=== PATIENT | male | born 1960 | race Caucasian/White ===

== ENCOUNTER 2019-06-10 15:45 | Inpatient (IN) | payer MEDICARE ==
[~2019-06-10] VITALS: Ht 170.2 cm; Wt 94.7 kg
[2019-06-10 15:48] VITALS: BP 161/86
[2019-06-10 16:35] LABS: ABSOLUTE BASOPHILS 0.1 thou/uL (0.0-0.2); ABSOLUTE EOSINOPHILS 0.3 thou/uL (0.0-0.7); ABSOLUTE LYMPHOCYTES 2.7 thou/uL (0.8-5.3); ABSOLUTE MONOCYTES 0.7 thou/uL (0.0-1.2); ABSOLUTE NEUTROPHILS 5.1 thou/uL (1.6-8.1); BASOPHILS 1.6 %; EOSINOPHILS 2.9 %; HEMATOCRIT 43.3 % (42.0-52.0); HEMOGLOBIN 15.1 gm/dL (14.0-18.0); LYMPHOCYTES 30.2 %; MCH 32.1 pg (26.0-34.0); MCHC 34.9 g/dL (28.0-37.0); MCV 91.9 fL (80.0-100.0); NUCLEATED RBCS 0 /100WBC; PLATELET COUNT* 294 thou/uL (150-400); POLYS 57.3 %; RBC 4.71 mil/uL (4.50-6.00); RDW-CV 13.5 % (10.5-14.5); WBC 8.8 thou/uL (4.0-11.0)
[2019-06-10 16:47] LABS: APTT 28.7 Seconds (25.0-31.3); CALCIUM 8.8 mg/dL (8.5-10.1); CREATININE 0.9 mg/dL (0.6-1.3); POTASSIUM 3.6 mmol/L (3.5-5.1); PROTIME 10.6 Seconds (9.20-11.50)
[2019-06-10 16:51] LABS: ALBUMIN 3.9 g/dL (3.4-5.0); TOTAL BILIRUBIN 0.4 mg/dL (<0.1-1.0); TOTAL PROTEIN 7.2 g/dL (6.4-8.2)
--- NOTE | 2019-06-10 16:59 | EKG ---
[place] [address] ELECTROCARDIOGRAM REPORT Name: ARUTR CHATTERJEE Room: [facility]#: [id number] Admission: 06/10/19 Attend Phys: Discharge: Date of : 58 Date of Service: 06/10/19 1550 Report #: [id number] THIS REPORT FOR: //name// [facility] ED Test Date: 2019-06-10 Test Time: 15:50:37 Pat Name: ARTUR CHATTERJEE Department: Room: Gender: Leadership Program Intern: AR : 1960 Requested By: Judy Kearney Order Number: [id number] MD: Emmanuel Morales Measurements Intervals [place] Rate: 83 P: 16 WV: 181 QRS: -17 QRSD: 87 T: 51 QT: 380 QTc: 447 Interpretive Statements Sinus rhythm Borderline left axis deviation Baseline wander in lead(s) V3 No previous ECG available for comparison Electronically Signed On 06-10-2019 16:57:39 CDT by Emmanuel Morales [email or web address] <ELECTRONICALLY SIGNED> By: Emmanuel Morales MD, [facility] 06/10/19 1657 1550 1550 Emmanuel Morales MD, FACC /EPI
[2019-06-10 17:15] LABS: URINE BILIRUBIN NEGATIVE (Negative); URINE BLOOD NEGATIVE (Negative); URINE CLARITY CLEAR; URINE COLOR YELLOW; URINE GLUCOSE-RANDOM NEGATIVE (Negative); URINE KETONES NEGATIVE (Negative); URINE LEUKOCYTES-REFLEX NEGATIVE (Negative); URINE NITRITE-REFLEX NEGATIVE (Negative); URINE PROTEIN 1+ (Negative); URINE SPECIFIC GRAVITY >= 1.030 (1.005-1.030); URINE UROBILINOGEN 0.2 E.U./dl (0.2-1.0)
[2019-06-10 17:25] LABS: AMP/METHAMP Negative (Negative); BARBITURATES Negative (Negative); BENZODIAZEPINES Negative (Negative); COCAINE Negative (Negative); METHADONE Negative (Negative); OPIATES Negative (Negative); PCP Negative (Negative); THC Negative (Negative)
[2019-06-10 20:38] VITALS: BP 158/78
[2019-06-10 21:00] VITALS: BP 135/99
[2019-06-11 00:03] VITALS: BP 145/82; BP 171/70
[2019-06-11 04:00] VITALS: BP 160/76
--- NOTE | 2019-06-11 04:34 | NUR ---
RECEIVED REPORT FROM ED RN. PT TRANSFERRED TO RM 204. PT A&OX4. VSS. PHYSICAL ASSESSMENT COMPLETED AND CHARTED. PT ON RA. PT TRACING SR ON TELE. PT UPSTANDBY TO RESTROOM. PT COMPLAINED OF RIGHT ANKLE BUT REFUSED MEDS. NIH CHARTED. MAINTAINED ON NPO FOR ST EVAL. DID NOT PASS BEDSIDE SWALLOW. CALL LIGHT WITHIN REACH.
[2019-06-11 04:43] LABS: ALBUMIN 3.6 g/dL (3.4-5.0); CALCIUM 8.6 mg/dL (8.5-10.1); CREATININE 0.8 mg/dL (0.6-1.3); POTASSIUM 3.7 mmol/L (3.5-5.1); TOTAL BILIRUBIN 0.5 mg/dL (<0.1-1.0); TOTAL PROTEIN 6.5 g/dL (6.4-8.2)
[2019-06-11 04:45] LABS: CHOLESTEROL 190 mg/dL (<200); HDL CHOLESTEROL 21 mg/dL (>40); LDL CHOLESTEROL 137 mg/dL (<100); TRIGLYCERIDE 160 mg/dL (<150); VLDL 32 mg/dL (<40)
[2019-06-11 04:47] LABS: SERUM ASSESSMENT Clear
[2019-06-11 07:30] VITALS: BP 171/89
--- NOTE | 2019-06-11 10:05 | CON ---
[address] [address] CONSULTATION Name: ARTUR CHATTERJEE Room: [address] IN [facility]#: [id number] Admission: 06/10/19 Attend Phys: Dinesh Washington Discharge: Date of : 58 Report #: [id number] THIS REPORT FOR: //name// cc: MARTITA - No family physician/PCP MARTITA - No family physician/PCP ~ THIS REPORT FOR: //name// CC: MARTITA physician/PCP Rocky Barros DATE OF SERVICE: 06/11/2019 HISTORY OF PRESENT ILLNESS: This is a 58-year-old male patient who was evaluated by pretty unusual history. I had talked to the nurses looking after this patient last night and I talked to the nurse practitioner who admitted the patient from Emergency Room. As documented in their notes, this patient is a very poor historian. He came to Emergency Room because he was having some symptoms suggestive of cough and cold for 5 months. They noticed some speech difficulty. It is not even sure what the duration is. The patient never noticed it. When he noticed it, he noticed it at 1:30, which was way outside the window to do any TPA or intervention. Some of the records and history indicated that it may have been as well as 4 days or even longer than that. This patient does have a history of hypertension, but is pretty noncompliant and does not take any medications for that on a proper basis. He continued to smoke. REVIEW OF SYSTEMS: A 14-point review of system was attempted, both from the patient as well as from the record, it looks like he has a history of hypercholesterolemia, hypertension and noncompliance. That is all the history I can get. PAST MEDICAL HISTORY: Negative for stroke, but he had a head injury and he had a plate in his head according to him. FAMILY HISTORY: Noncontributory. SOCIAL HISTORY: He smokes. PHYSICAL EXAMINATION: Indicates that on my examination, he is alert, responsive. He is oriented. He can tell me what hospital he is in, and he knows who the president is. His cranial nerve examination was attempted and looks mostly unremarkable. He moves all four extremities and his position sense is intact on both sides. I could not look at the fundus. There is no carotid bruit in this patient. Cardiac examinations appear unremarkable. There is no respiratory difficulty, but he has rhonchi. His last blood pressure was 160/76, pulse is 76, temperature [place] 97.8. [place] [address] CONSULTATION Name: ARTUR CHATTERJEE Room: [address]#: [id number] Admission: 06/10/19 Attend Phys: Dinesh Washington Discharge: Date of : 58 Report #: [id number] LABORATORY DATA: White count is 8.8. His triglyceride is 160, his cholesterol is 190, but his LDL is 137. His HDL is only 21. His CTA does show moderate amount of stenosis. IMPRESSION: Very poorly defined history in this patient. It is possible this patient had a transient ischemic attack. He does have a moderate amount of stenosis and we will get him evaluated by Vascular Surgery. He appeared to be his baseline. His chest x-ray shows a nodule and he is a smoker. I will suggest working up further for that. As far as his blood pressure is concerned, it is not very high and it is probably like this. Presently we can leave it like this, but over a period of time that needs to be corrected. I did put him on aspirin, but I did not put him on Plavix. If Vascular Surgery considers any intervention, then I will put him on Plavix for the time being, but subsequently consider that if they do not plan to do any intervention on him. Main thing is he needs to take care of his vascular risk factors and needs to be compliant and we talked about it and I discussed with him the consequences of being noncompliant. He understands that. More than 50 minutes of time was spent taking care of this patient and majority of that time was spent counseling and co ordianting Thank you very much for this referral. <ELECTRONICALLY SIGNED> By: Lonnie Mccauley MD 06/11/19 1005 0837 [id number] Mccauley MD /nt
[2019-06-11 12:19] VITALS: BP 176/92
--- NOTE | 2019-06-11 15:31 | 2DMMODE ---
[place] [address] 2 D/M-MODE ECHOCARDIOGRAM Name: ARTUR CHATTERJEE Room: [address] IN [facility]#: [id number] Admission: 06/10/19 Attend Phys: Rocky Barros Discharge: Date of : 58 Date of Service: 06/11/19 1529 Report #: [id number] THIS REPORT FOR: cc: FAM - No family physician/PCP FAM - No family physician/PCP Sergio Britton MD [facility] ~ APPROVED REPORT Study performed: 06/11/2019 11:10:25 EXAM: Comprehensive 2D, Doppler, and color-flow Echocardiogram Patient Location: In-Patient Room #: [facility] Status: routine BSA: 2.02 HR: 74 bpm BP: 171/89 mmHg Rhythm: NSR Other Information Study Quality: Good Indications CVA/TIA Echo Enhancing Agent Indication: Rule out Shunt Agent(s) / Amount(s) Used: Agitated Saline 10 cc 2D Dimensions IVSd: 10.01 (7-11mm) LVOT Diam: 22.74 (18-24mm) LVDd: 40.37 mm PWd: 9.08 (7-11mm) Ascending Ao: 34.33 (22-36mm) LVDs: 24.38 (25-40mm) Aortic Root: 35.61 mm Volumes Left Atrial Volume (Systole) LA ESV Index: 27.50 mL/m2 Aortic Valve AoV Peak Germán.: 1.28 m/s AO Peak Gr.: 6.59 mmHg LVOT Max P.81 mmHg AO Mean Gr.: 3.87 mmHg LVOT Mean P[place]80 [place] [address] 2 D/M-MODE ECHOCARDIOGRAM Name: ARTUR CHATTERJEE Room: [address] IN [facility].#: [id number] Admission: 06/10/19 Attend Phys: Rocky Barros Discharge: Date of : 58 Date of Service: 06/11/19 1529 Report #: [id number] LVOT Max V: 1.10 m/s AO V2 VTI: 25.92 cm LVOT Mean V: 0.60 m/s SANAZ (VTI): 3.22 cm2 LVOT V1 VTI: 20.56 cm Mitral Valve E/A Ratio: 0.96 MV Decel. Time: 265.21 ms MV E Max Germán.: 0.83 m/s MV PHT: 76.91 ms MVA (PHT): 2.86 cm2 TDI E/Lateral E': 6.92 E/Medial E': 10.38 Medial E' Germán.: 0.08 m/s Lateral E' Germán.: 0.12 m/s Pulmonary Valve PV Peak Germán.: 1.09 m/s PV Peak Gr.: 4.76 mmHg Left Ventricle The left ventricle is normal size. There is normal LV segmental wall motion. There is normal left ventricular wall thickness. Left ventricular systolic function is normal. LVEF is 60-65%. Right Ventricle The right ventricle is normal size. The right ventricular systolic function is normal. Atria The left atrium size is normal. The interatrial septum is intact with no evidence for an atrial septal defect. The right atrium size is normal. Aortic Valve The aortic valve is normal in structure. No aortic regurgitation is present. There is no aortic valvular stenosis. Mitral Valve The mitral valve is normal in structure. Trace mitral regurgitation. No evidence of mitral valve stenosis. Tricuspid Valve The tricuspid valve is normal in structure. Unable to assess PA pressure. Trace tricuspid regurgitation[place] [address] 2 D/M-MODE ECHOCARDIOGRAM Name: ARTUR CHATTERJEE Room: [address] IN [facility]#: [id number] Admission: 06/10/19 Attend Phys: Rocky Barros Discharge: Date of : 58 Date of Service: 06/11/19 1529 Report #: [id number] The pulmonary valve is normal in structure. Trace pulmonic regurgitation. Great Vessels The aortic root is normal in size. IVC is normal in size and collapses >50% with inspiration. Pericardium There is no pericardial effusion. <Conclusion> The left ventricle is normal size. There is normal left ventricular wall thickness. Left ventricular systolic function is normal. LVEF is 60-65%. The interatrial septum is intact with no evidence for an atrial septal defect. Trace mitral regurgitation. Trace tricuspid regurgitation. Trace pulmonic regurgitation. IVC is normal in size and collapses >50% with inspiration. <ELECTRONICALLY SIGNED> By: Sergio Britton MD, FACC 06/11/19 1529 1529 1529 Sergio Britton MD, FACC /INF
--- NOTE | 2019-06-11 16:47 | NUR ---
Pt confused and slurred speech according to record. SW called [phone] and spoke with pt friend Debbie who was with pt and pt other friend/roommate Yael at the time of suspected stroke. Pt friend said that pt was home alone often and would need to be independent at dc; pt friend also mentioned that she just recently learned that pt was incontinent of bowel at times at home. Pt has cane. No known history of HH or SNF. SW to continue to follow to assist with safe dc planning.
--- NOTE | 2019-06-11 19:50 | NUR ---
REMAINS ALERT AND ORIENTED. RESPIRATIONS EVEN AND UNLABORED ON ROOM AIR. DENIES PAIN. UP AD FRANCINE IN HALLWAYS. NIHSS 2. SR ON TELEMETRY. NO ISSUES WITH SWALLOWING. CALL BLISS AND PERSONAL ITEMS WITHIN REACH. NSG WILL CONTINUE TO ASSESS.
[2019-06-11 20:00] VITALS: BP 168/98
[2019-06-12] VITALS (7 sets, daily range): BP systolic 86–182; BP diastolic 43–83
[2019-06-12 02:07] LABS: GLYCOHEMOGLOBIN (HGB A1C) 5.5 % (4.8-5.6)
--- NOTE | 2019-06-12 07:41 | NUR ---
ASSUMED CARE OF PT AFTER REPORT AT 1930. PT A&OX4. VSS. PHYSICAL ASSESSMENT COMPLETED AND CHARTED. PT ON RA. PT TRACING SR ON TELE. PT COMPLAINED OF LEFT HIP PAIN BUT REFUSED PAIN MEDS. NIH CHARTED. PT ABLE TO SLEEP WELL ON BED. CALL LIGHT WITHIN REACH.
[2019-06-13] VITALS (7 sets, daily range): BP systolic 134–183; BP diastolic 72–93
--- NOTE | 2019-06-13 05:06 | NUR ---
ASSESSMENTS COMPLETED AT BEDSIDE PLEASE REFER TO CHARTING FOR DETAILS. MEDICATIONS ADMINISTERED PER MAR. PT REPORTED NO C/O PAIN OR DISCOMFORT. PT IS TO REMAIN NPO OR STRESS TEST SCHEDULED FOR TODAY. CURRENTLY ASLEEP WITH BED ALARM ON AND CALL LIGHT WITHIN REACH.
--- NOTE | 2019-06-13 11:51 | NUR ---
PT OFF UNIT TO NUC MED
[2019-06-13] MEDS ORDERED: LIPITOR 40 MG T40 M1 PO (13:01)
[2019-06-13] MEDS ORDERED: ASA81BEC PO (13:01)
[2019-06-13] MEDS ORDERED: COZAAR 50 MG TA50 M1 PO (13:01)
[2019-06-13] MEDS ORDERED: VITAMIN B-12500 MCG PO (13:01)
[2019-06-13] MEDS ORDERED: NICOTINE TRANSD21 M1 TRANSDERM (13:01)
[2019-06-13] MEDS ORDERED: PLAVIX 75 MG TA75 M1 PO (13:01)
--- NOTE | 2019-06-13 16:09 | NUR ---
TELE AND IV DISCONTINUED. PT UNDERSTANDS ALL FOLLOW UP ORDERS, WILL DISCAHRGE TO HOME.
--- NOTE | 2019-06-13 16:26 | CARDNUC ---
[place] [address] CARDIAC NUCLEAR IMAGING REPORT Name: ARTRU CHATTERJEE Room: [address] IN [facility]#: [id number] Admission: 06/10/19 Attend Phys: Rocky Barros Discharge: Date of : 58 Date of Service: 06/13/19 1624 Report #: [id number] THIS REPORT FOR: cc: FAM - No family physician/PCP FAM - No family physician/PCP Sergio Britton MD [facility] ~ APPROVED REPORT Imaging Protocol: Stress Tc-99m/Rest Tc-99m 1 day Study performed: 06/12/2019 08:56:00 Indication: altered mental status, slurred speach Patient Location: In-Patient Room #: 204 Stress Tech: Leti Egan Stress Nurse: Mandy Kee RN Ht: 5 ft 7 in Wt: 199 lbs BSA: 2.02 m2 BMI: 31.16 Medical History Medical History: HTN, Hyperlipidemia Medications: clopidogrel, asa-81, atorvastatin Allergies: No known drug allergies Cardiac Risk Factors: Age, HTN, Hyperlipidemia, Tobacco History (Former) Exercise History: Sedentary Resting Data Rest SPECT myocardial perfusion imaging was performed in supine position 30 minutes following the intravenous injection of 10.6 mCi of Tc-99m Sestamibi. Time of rest injection: 14:30 Date: 06/12/2019 The images were gated to evaluate regional wall motion and calculate left ventricular ejection fraction. Administration Route: IV Administration Site: Left AC Pharmacologic Stress Pharmacologic stress test was performed by injecting Regadenoson 0.4 mg IV push over 10-15 seconds immediately followed by the intravenous injection of 32.4 mCi of Tc-99m Sestamibi. Time of stress injection: 12:15 Date: 06/13/2019 Administration Route: [place] [address] CARDIAC NUCLEAR IMAGING REPORT Name: ARTUR CHATTERJEE Room: [address]#: [id number] Admission: 06/10/19 Attend Phys: Rocky Barros Discharge: Date of : 58 Date of Service: 06/13/19 1624 Report #: [id number] Administration Site: Left Heart Rate at time of stress injection: 120 bpm. Gated Stress SPECT was performed 40 minutes after stress injection. The images were gated to evaluate regional wall motion and calculate left ventricular ejection fraction. Prone imaging was performed. Stress Test Details Stress Test: Pharmacologic stress testing performed using 0.4 mg of regadenoson per 5 mL given IV over 10 seconds. Reason for pharmacologic stress test: physical limitation. HR Max Heart Rate (APMHR): 161 bpm Resting HR: 81 bpm Target HR (85% APMHR): 136 bpm Max HR Achieved: 120 bpm % of APMHR: 74 Recovery HR: 101 bpm BP Resting BP: 151/91 mmHg Max BP: 204/108 mmHg Recovery BP: 156/104 mmHg ECG Resting ECG: Sinus Rhythm Stress ECG: Sinus Tachycardia ST Change: None Arrhythmia: None Recovery ECG: Sinus Rhythm Recovery ST Change: None Recovery Arrhythmia: None Clinical Reason for Termination: Completed protocol The patient tolerated walking Lexiscan protocol without significant cardiac symptoms. Nurse Comments pt walks with cane Stress ECG Conclusion The baseline 12-lead EKG shows sinus rhythm without significant ST segment or T wave abnormality. EKGs obtained during and post Lexiscan infusion show sinus rhythm and sinus tachycardia with no significant ST segment or T wave changes when compared to baseline. There were no significant stress[place] [address] CARDIAC NUCLEAR IMAGING REPORT Name: ARTUR CHATTERJEE Room: [address]#: [id number] Admission: 06/10/19 Attend Phys: Rocky Barros Discharge: Date of : 58 Date of Service: 06/13/19 1624 Report #: [id number] Study Quality Study: Good Artifact: No artifact Study Data At rest, the left ventricular ejection fraction was 73%.. Post stress, the left ventricular ejection was 79%.. TID = 0.75. Perfusion Perfusion images obtained at rest and post Lexiscan stress show uniform uptake of the radioisotope throughout the myocardium. There were no defects to suggest infarct or ischemia. Wall Motion Normal left ventricular wall motion. Nuclear Conclusion ECG Findings: negative for ischemia Clinical Findings: negative for ischemia Nuclear Findings: negative for ischemia Exercise Capacity: not assessed Left Ventricular Function: normal Risk Study: low Myocardial perfusion images show no defect to suggest infarct or ischemia. Left ventricular systolic function appears normal on gated studies. This is a low risk study. <Conclusion> The baseline 12-lead EKG shows sinus rhythm without significant ST segment or T wave abnormality. EKGs obtained during and post Lexiscan infusion show sinus rhythm and sinus tachycardia with no significant ST segment or T wave changes when compared to baseline. There were no significant stress-induced arrhythmias. <ELECTRONICALLY SIGNED> By: Sergio Britton MD, FACC 06/13/19 1624 1624 1624 Sergio Britton MD, FACC /INF
== END 2019-06-13 16:00 | disposition home or self-care (01) | DRG 64 ==
LOC: M.ERS 15:45 → M.TBA-ER 18:18 → M.2W 18:18
PROVIDERS: Nurse Practitioner Family; ADMIT Internal Medicine
DX: I63.9 Cerebral infarction, unspecified (principal); G93.41 Metabolic encephalopathy; I65.23 Occlusion and stenosis of bilateral carotid arteries; I10 Essential (primary) hypertension; F17.210 Nicotine dependence, cigarettes, uncomplicated; R13.10 Dysphagia, unspecified; E78.5 Hyperlipidemia, unspecified; E66.9 Obesity, unspecified; I20.9 Angina pectoris, unspecified; Z71.6 Tobacco abuse counseling; Z68.32 Body mass index [BMI] 32.0-32.9, adult; Z79.82 Long term (current) use of aspirin; Z79.899 Other long term (current) drug therapy; Z91.14 Patient's other noncompliance with medication regimen

== ENCOUNTER 2019-11-25 02:49 | Inpatient (IN) | payer MEDICARE ==
[~2019-11-25] VITALS: Ht 170.2 cm; Wt 86.4 kg
[2019-11-25] VITALS (7 sets, daily range): BP systolic 140–173; BP diastolic 67–86
--- NOTE | ~2019-11-25 | CON ---
[address] [address] CONSULTATION Name: ARTUR CHATTERJEE Cyril Room: [address] [facility]#: [id number] Admission: 11/25/19 Attend Phys: Yonis Berger MD Discharge: Date of : 58 Report #: [id number] THIS REPORT FOR: //name// cc: MARTITA Wong family physician/PCP MARTITA Wong family physician/PCP ~ THIS REPORT FOR: //name// CC: Yonis Berger FAM physician/PCP DATE OF SERVICE: 11/25/2019 HISTORY OF PRESENT ILLNESS: This is a 59-year-old male patient who was evaluated by me for speech difficulty. The patient is a poor historian. Part of the history is taken from the record, especially H and P and the patient's Emergency Room note. The patient said it is going on for several days. He does not know the exact number. The records indicate it is going on for 3 weeks. The patient tells me he is aware of it, but the records indicate it was mostly noticed by the friends. He basically has trouble finding the word. He does not believe he is paralyzed on one side or another. He apparently did have an episode of incontinence. REVIEW OF SYSTEMS: A 14-point review of system was carried out. He says he has hypertension and problem with cholesterol. He says that there is some problem with heart, but he is not able to describe what exactly the problem is. 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 Otherwise, he does not have any eye, ENT, cardiac, respiratory, , musculoskeletal, constitutional, dermatological, hematological, psychiatric, throat, allergic symptom associated with present symptomatology. He does complain of some abdominal problems, but that is mostly hernia in all. PAST MEDICAL HISTORY: Positive for some nonspecific heart problems. FAMILY HISTORY: Positive for myocardial infarction but in 90s. SOCIAL HISTORY: He smokes. He says he does drink alcohol, but does not abuse. PHYSICAL EXAMINATION: Indicates he is alert. He is responsive. He is able to follow simple and complex commands. His speech looks intact. He can tell me what month and what date it is. His fund of knowledge and memory is at his baseline. Cranial nerve examination 2-12 is unremarkable. The patient does have a symmetrical strength, sensation, reflexes in all 4 extremities. His tone is unremarkable. His reflexes are present in both lower extremities. Plantars appeared to be withdrawal, but I cannot exclude the possibility of upgoing plantar. There is no meningeal sign. I could not look at the patient's fundus. The patient is reasonably well-developed individual. He does not have any dysmorphic features of eyes, ears and face. [place] [address] CONSULTATION Name: ARTUR CHATTERJEE Room: [address] [facility]#: [id number] Admission: 11/25/19 Attend Phys: Yonis Berger MD Discharge: Date of : 58 Report #: [id number]. His cardiac examination is unremarkable. He has no respiratory difficulty or rhonchi. His pulses are nicely palpable. His blood pressure is 160/75, respirations 14, pulse is 63, temperature is 97.8. LABORATORY DATA: His white count is slightly up at 11.4. GFR is 68. His cholesterol is 190 and his HDL is only 121, the last time it was checked in May, so he does have dyslipidemia. His last vitamin B12 and vitamin D was also low and that was checked recently. He does have some prior records and in fact he was here. IMPRESSION: Progressive aphasia. I do not know what the etiology is. He says he does not have any metal in his body, but reviewing the records, which I did after talking to him, it looks like he is becoming worse, but difficult to be certain, but I will talk to primary to see if MRI can be done in this patient. He did have a CT, which does not show any abnormality. His carotid Doppler is showing only mild changes. His last vitamin B12 was low, it needs to be rechecked and his vitamin D needs to be addressed and I will defer that to primary. I will also talk to them and see what further workup can be done in this patient. Ideally, he should have an MRI. We will see if MRI can be done. Thank you very much for this referral. By: 1006 1039Lonnie Mccauley MD /sammy
[~2019-11-25 02:49] MED LIST: ASA81BEC PO; COZAAR 50 MG TA50 M1 PO; LIPITOR 40 MG T40 M1 PO; NICOTINE TRANSD21 M1 TRANSDERM; PLAVIX 75 MG TA75 M1 PO; VITAMIN B-12500 MCG PO
[2019-11-25 03:51] LABS: ABSOLUTE BASOPHILS 0.1 thou/uL (0.0-0.2); ABSOLUTE EOSINOPHILS 0.5 thou/uL (0.0-0.7); ABSOLUTE LYMPHOCYTES 3.3 thou/uL (0.8-5.3); ABSOLUTE NEUTROPHILS 6.4 thou/uL (1.6-8.1); BASOPHILS 1.3 %; EOSINOPHILS 4.4 %; HEMATOCRIT 48.1 % (42.0-52.0); HEMOGLOBIN 16.3 gm/dL (14.0-18.0); LYMPHOCYTES 28.8 %; MCH 31.4 pg (26.0-34.0); MCHC 33.9 g/dL (28.0-37.0); MCV 92.7 fL (80.0-100.0); MONOCYTES 8.7 %; MPV 8.3 fl. (7.2-11.1); NUCLEATED RBCS 0 /100WBC; PLATELET COUNT* 239 thou/uL (150-400); POLYS 56.8 %; RBC 5.19 mil/uL (4.50-6.00); RDW-CV 13.9 % (10.5-14.5); WBC 11.4 thou/uL (4.0-11.0)
[2019-11-25 04:13] LABS: URINE BLOOD NEGATIVE (Negative); URINE CLARITY CLEAR; URINE COLOR YELLOW; URINE GLUCOSE-RANDOM NEGATIVE (Negative); URINE KETONES TRACE (Negative); URINE LEUKOCYTES-REFLEX NEGATIVE (Negative); URINE NITRITE-REFLEX NEGATIVE (Negative); URINE PROTEIN TRACE (Negative); URINE SPECIFIC GRAVITY >= 1.030 (1.005-1.030)
[2019-11-25 04:18] LABS: URINE BILIRUBIN 2+ (Negative)
[2019-11-25 04:18] LABS: ALBUMIN 4.4 g/dL (3.4-5.0); MAGNESIUM 2.1 mg/dL (1.8-2.4); POTASSIUM 3.5 mmol/L (3.5-5.1); TOTAL BILIRUBIN 0.7 mg/dL (<0.1-1.0); TOTAL PROTEIN 7.9 g/dL (6.4-8.2)
[2019-11-25 04:20] LABS: ICTOTEST (BILI CONFIRMATORY) Negative (Negative)
[2019-11-25 04:47] LABS: CREATININE 1.1 mg/dL (0.6-1.3)
[2019-11-25 05:31] LABS: PROTIME 10.6 Seconds (9.20-11.50)
[2019-11-25] MEDS ORDERED: PLAVIX 75 MG TA75 MG PO (14:02)
[2019-11-25] MEDS ORDERED: LOW DOSE ASPIRI81 M1 PO (14:02)
--- NOTE | 2019-11-25 18:28 | EKG ---
[place] [address] ELECTROCARDIOGRAM REPORT Name: ARTUR CHATTERJEE Room: [place] [address] ADM [place] [facility]#: [id number] Admission: 11/25/19 Attend Phys: Yonis Berger, Discharge: Date of : 58 Date of Service: 11/25/19 0322 Report #: [id number] THIS REPORT FOR: //name// [facility] ED Test Date: 2019-11-25 Test Time: 03:22:42 Pat Name: ARTUR CHATTERJEE Department: Room: [facility] Gender: M Charge Manager: COLIN : 1960 Requested By: Shamika Talavera Order Number: [id number] MD: Sergio Britton Measurements Intervals [place] Rate: 70 P: 50 CT: 197 QRS: 12 QRSD: 85 T: 47 QT: 410 QTc: 443 Interpretive Statements Sinus rhythm Compared to ECG 06/10/2019 15:50:37 No significant changes Electronically Signed On 11-25-2019 18:28:04 CDT by Sergio Britton [email or web address] <ELECTRONICALLY SIGNED> By: Sergio Britton MD, FACC 11/25/19 1828 0322 0322 Sergio Britton MD, FACC /EPI
[2019-11-25 18:50] LABS: AMP/METHAMP Negative (Negative); BARBITURATES Negative (Negative); BENZODIAZEPINES Negative (Negative); COCAINE Negative (Negative); METHADONE Negative (Negative); OPIATES Negative (Negative); PCP Negative (Negative); THC Negative (Negative)
[2019-11-26] VITALS: BP 169/74
[2019-11-26 02:06] LABS: GLYCOHEMOGLOBIN (HGB A1C) 5.3 % (4.8-5.6)
[2019-11-26 04:00] VITALS: BP 158/65
[2019-11-26 05:35] LABS: ABSOLUTE BASOPHILS 0.1 thou/uL (0.0-0.2); ABSOLUTE EOSINOPHILS 0.5 thou/uL (0.0-0.7); ABSOLUTE LYMPHOCYTES 3.2 thou/uL (0.8-5.3); ABSOLUTE MONOCYTES 0.8 thou/uL (0.0-1.2); ABSOLUTE NEUTROPHILS 4.5 thou/uL (1.6-8.1); BASOPHILS 1.5 %; EOSINOPHILS 5.2 %; HEMATOCRIT 42.7 % (42.0-52.0); HEMOGLOBIN 14.4 gm/dL (14.0-18.0); LYMPHOCYTES 35.3 %; MCH 31.6 pg (26.0-34.0); MCHC 33.7 g/dL (28.0-37.0); MCV 93.7 fL (80.0-100.0); MONOCYTES 8.4 %; MPV 8.8 fl. (7.2-11.1); NUCLEATED RBCS 0 /100WBC; PLATELET COUNT* 219 thou/uL (150-400); POLYS 49.6 %; RBC 4.56 mil/uL (4.50-6.00); WBC 9.1 thou/uL (4.0-11.0)
[2019-11-26 05:46] LABS: CALCIUM 8.8 mg/dL (8.5-10.1); CREATININE 0.8 mg/dL (0.6-1.3); POTASSIUM 3.7 mmol/L (3.5-5.1)
[2019-11-26 05:52] LABS: CHOLESTEROL 185 mg/dL (<200); HDL CHOLESTEROL 22 mg/dL (>40); LDL CHOLESTEROL 136 mg/dL (<100); TC:HDL 8.4 Ratio (Not establshd); TRIGLYCERIDE 135 mg/dL (<150); VLDL 27 mg/dL (<40)
[2019-11-26 05:53] LABS: SERUM ASSESSMENT Clear
[2019-11-26 08:00] VITALS: BP 157/84
[2019-11-26 12:00] VITALS: BP 143/78
--- NOTE | 2019-11-26 15:35 | 2DMMODE ---
[place] [id number] 2 D/M-MODE ECHOCARDIOGRAM Name: ARTUR CHATTERJEE Room: [address] [place] .R.#: [id number] Admission: 11/25/19 Attend Phys: Yonis Berger, Discharge: Date of : 58 Date of Service: 11/26/19 1535 Report #: [id number] THIS REPORT FOR: cc: MARTITA - Judith family physician/PCP MARTITA - No family physician/PCP Emmanuel Morales MD [facility] ~ APPROVED REPORT Study performed: 11/26/2019 10:13:33 EXAM: Comprehensive 2D, Doppler, and color-flow Echocardiogram Patient Location: Bedside BSA: 1.96 HR: 63 bpm BP: 165/75 mmHg Other Information Study Quality: Good Indications CVA/TIA Echo Enhancing Agent Indication: Rule out Shunt Agent(s) / Amount(s) Used: Agitated Saline cc 2D Dimensions IVSd: 11.18 (7-11mm) LVOT Diam: 21.33 (18-24mm) LVDd: 49.76 mm PWd: 11.28 (7-11mm) Ascending Ao: 28.76 (22-36mm) LVDs: 33.04 (25-40mm) Aortic Root: 31.73 mm Volumes Left Atrial Volume (Systole) LA ESV Index: 13.80 mL/m2 Aortic Valve AoV Peak Germán.: 1.52 m/s AO Peak Gr.: 9.19 mmHg LVOT Max P.76 mmHg AO Mean Gr.: 4.93 mmHg LVOT Mean P.40 mmHg LVOT Max V: 0.83 m/s AO V2 VTI: 26.95 cm LVOT Mean V: 0.55 m/[place] [id number] 2 D/M-MODE ECHOCARDIOGRAM Name: ARTUR CHATTERJEE Room: [address] [place] .R.#: [id number] Admission: 11/25/19 Attend Phys: Yonis Berger, Discharge: Date of : 58 Date of Service: 11/26/19 1535 Report #: [id number] SANAZ (VTI): 2.02 cm2 LVOT V1 VTI: 15.27 cm Mitral Valve E/A Ratio: 1.02 MV Decel. Time: 292.14 ms MV E Max Germán.: 0.85 m/s MV PHT: 84.72 ms MVA (PHT): 2.60 cm2 TDI E/Lateral E': 8.50 E/Medial E': 10.63 Medial E' Germán.: 0.08 m/s Lateral E' Germán.: 0.10 m/s Pulmonary Valve PV Peak Germán.: 1.23 m/s PV Peak Gr.: 6.02 mmHg Tricuspid Valve RAP Estimate: 5.00 mmHg TR Peak Gr.: 13.56 mmHg RVSP: 18.56 mmHg PA Pressure: 18.56 mmHg Left Ventricle The left ventricle is normal size. There is normal LV segmental wall motion. There is normal left ventricular wall thickness. Left ventricular systolic function is normal. The left ventricular ejection fraction is within the normal range. LVEF is 60-65%. The left ventricular diastolic function is normal. Right Ventricle The right ventricle is normal size. The right ventricular systolic function is normal. Atria The left atrium size is normal. Injection of bubbles documented no interatrial shunt. The right atrium size is normal. Aortic Valve The aortic valve is normal in structure. No aortic regurgitation is present. There is no aortic valvular stenosis. Mitral Valve The mitral valve is normal in structure. There is no mitral valve regurgitation noted. No evidence of mitral valve stenosis[place] [id number] 2 D/M-MODE ECHOCARDIOGRAM Name: CHATTERJEEARTUR Room: [address] [place] [facility]#: [id number] Admission: 11/25/19 Attend Phys: Yonis Berger, Discharge: Date of : 58 Date of Service: 11/26/19 1535 Report #: [id number] The tricuspid valve is normal in structure. Trace tricuspid regurgitation. Pulmonic Valve The pulmonary valve is normal in structure. There is no pulmonic valvular regurgitation. Great Vessels The aortic root is normal in size. IVC is normal in size and collapses >50% with inspiration. Pericardium There is no pericardial effusion. <Conclusion> The left ventricle is normal size. There is normal left ventricular wall thickness. Left ventricular systolic function is normal. The left ventricular ejection fraction is within the normal range. LVEF is 60-65%. The left ventricular diastolic function is normal. The right ventricle is normal size. The left atrium size is normal. The aortic valve is normal in structure. The mitral valve is normal in structure. The tricuspid valve is normal in structure. IVC is normal in size and collapses >50% with inspiration. There is no pericardial effusion. There is normal LV segmental wall motion. Injection of bubbles documented no interatrial shunt. <ELECTRONICALLY SIGNED> By: Emmanuel Morales MD, FACC 11/26/19 1535 1535 1535 Emmanuel Morales MD, FACC /INF
[2019-11-26 16:00] VITALS: BP 167/89
[2019-11-26 19:50] VITALS: BP 188/90
[2019-11-27 00:16] VITALS: BP 150/80
[2019-11-27 06:12] LABS: ABSOLUTE EOSINOPHILS 0.4 thou/uL (0.0-0.7); ABSOLUTE LYMPHOCYTES 3.1 thou/uL (0.8-5.3); ABSOLUTE MONOCYTES 0.8 thou/uL (0.0-1.2); ABSOLUTE NEUTROPHILS 4.8 thou/uL (1.6-8.1); BASOPHILS 0.3 %; EOSINOPHILS 4.7 %; HEMATOCRIT 44.3 % (42.0-52.0); HEMOGLOBIN 15.1 gm/dL (14.0-18.0); MCH 31.9 pg (26.0-34.0); MCHC 34.1 g/dL (28.0-37.0); MCV 93.7 fL (80.0-100.0); MONOCYTES 8.6 %; MPV 9.2 fl. (7.2-11.1); NUCLEATED RBCS 0 /100WBC; PLATELET COUNT* 188 thou/uL (150-400); POLYS 52.4 %; RBC 4.72 mil/uL (4.50-6.00); RDW-CV 13.8 % (10.5-14.5); WBC 9.1 thou/uL (4.0-11.0)
[2019-11-27 06:25] LABS: CREATININE 0.8 mg/dL (0.6-1.3); POTASSIUM 3.7 mmol/L (3.5-5.1)
[2019-11-27 08:00] VITALS: BP 167/78
[2019-11-27 11:30] VITALS: BP 99/75
[2019-11-27] MEDS ORDERED: LIPITOR40 MG PO (12:15)
[2019-11-27 19:40] VITALS: BP 185/87
[2019-11-28] VITALS (17 sets, daily range): BP systolic 100–183; BP diastolic 49–92
[2019-11-28 10:10] LABS: ABSOLUTE BASOPHILS 0.1 thou/uL (0.0-0.2); ABSOLUTE EOSINOPHILS 0.3 thou/uL (0.0-0.7); ABSOLUTE LYMPHOCYTES 2.3 thou/uL (0.8-5.3); ABSOLUTE MONOCYTES 0.7 thou/uL (0.0-1.2); ABSOLUTE NEUTROPHILS 4.9 thou/uL (1.6-8.1); BASOPHILS 0.6 %; EOSINOPHILS 3.9 %; HEMATOCRIT 49.1 % (42.0-52.0); HEMOGLOBIN 16.7 gm/dL (14.0-18.0); LYMPHOCYTES 27.7 %; MCHC 33.9 g/dL (28.0-37.0); MCV 94.2 fL (80.0-100.0); MPV 8.6 fl. (7.2-11.1); NUCLEATED RBCS 0 /100WBC; PLATELET COUNT* 245 thou/uL (150-400); POLYS 58.8 %; RBC 5.21 mil/uL (4.50-6.00); RDW-CV 13.9 % (10.5-14.5); WBC 8.3 thou/uL (4.0-11.0)
[2019-11-28 10:44] LABS: ALBUMIN 4.5 g/dL (3.4-5.0); CALCIUM 9.3 mg/dL (8.5-10.1); CREATININE 0.9 mg/dL (0.6-1.3); POTASSIUM 4.5 mmol/L (3.5-5.1); TOTAL BILIRUBIN 0.7 mg/dL (<0.1-1.0); TOTAL PROTEIN 8.2 g/dL (6.4-8.2)
[2019-11-28 13:08] LABS: ANA INTERPRETATION Negative (Negative)
[2019-11-29] VITALS (26 sets, daily range): BP systolic 79–180; BP diastolic 47–108
[2019-11-29 03:46] LABS: ABSOLUTE BASOPHILS 0.1 thou/uL (0.0-0.2); ABSOLUTE LYMPHOCYTES 1.3 thou/uL (0.8-5.3); ABSOLUTE MONOCYTES 1.6 thou/uL (0.0-1.2); ABSOLUTE NEUTROPHILS 12.8 thou/uL (1.6-8.1); BASOPHILS 0.4 %; HEMATOCRIT 43.2 % (42.0-52.0); LYMPHOCYTES 8.5 %; MCH 31.3 pg (26.0-34.0); MCHC 33.4 g/dL (28.0-37.0); MCV 93.7 fL (80.0-100.0); MONOCYTES 9.9 %; MPV 8.3 fl. (7.2-11.1); NUCLEATED RBCS 0 /100WBC; PLATELET COUNT* 232 thou/uL (150-400); POLYS 81.2 %; RBC 4.61 mil/uL (4.50-6.00); RDW-CV 13.6 % (10.5-14.5); WBC 15.7 thou/uL (4.0-11.0)
[2019-11-29 03:48] LABS: HEMOGLOBIN 14.4 gm/dL (14.0-18.0)
[2019-11-29 03:50] LABS: CALCIUM 8.7 mg/dL (8.5-10.1); POTASSIUM 3.7 mmol/L (3.5-5.1)
[2019-11-29] MEDS ORDERED: LORCET 5-325 M1 EACH PO (13:33)
== END 2019-11-29 15:08 | disposition home or self-care (01) | DRG 37 ==
LOC: M.ERS 02:49 → M.TBA-ER 06:24 → M.2W 12:46 → M.TBA-ER 12:46 → M.2W 18:54 → M.ICU 11-28 14:31
PROVIDERS: Emergency Medicine; Psychiatry & Neurology Neuromuscular Medicine; ADMIT Internal Medicine; ATTEND Internal Medicine
PROC: 03CM0ZZ Extirpation of Matter from Right External Carotid Artery, Open Approach (ICD-10-PCS; principal; 2019-11-28)
PROC: 03UM0KZ Supplement Right External Carotid Artery with Nonautologous Tissue Substitute, Open Approach (ICD-10-PCS; principal; 2019-11-28)
DX: I63.231 Cerebral infarction due to unspecified occlusion or stenosis of right carotid arteries (principal); I63.81 Other cerebral infarction due to occlusion or stenosis of small artery; G93.41 Metabolic encephalopathy; G81.94 Hemiplegia, unspecified affecting left nondominant side; R47.01 Aphasia; I10 Essential (primary) hypertension; R47.1 Dysarthria and anarthria; F17.210 Nicotine dependence, cigarettes, uncomplicated; E78.5 Hyperlipidemia, unspecified; Z20.828 Contact with and (suspected) exposure to other viral communicable diseases; Z28.21 Immunization not carried out because of patient refusal; Z82.49 Family history of ischemic heart disease and other diseases of the circulatory system; Z71.6 Tobacco abuse counseling; Z79.899 Other long term (current) drug therapy